=== PATIENT | female | born 1975 | race Caucasian/White ===

== ENCOUNTER 2019-11-19 17:06 | Emergency (ER) | payer OTHER ==
[2019-11-19 17:24] VITALS: BP 134/113; PULSE 113
[2019-11-19] MEDS ORDERED: Ondansetron 4 MG/2 ML SDV IVPUSH ONE ×2 (17:56→19:24)
[2019-11-19] MEDS ORDERED: Dextrose 5%-0.9% NaCl 1,000 ML IV SCH (18:00)
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
[2019-11-19] MEDS ORDERED: Iopamidol 612 MG/ML 100 ML Bottle IVPUSH ONE (19:21)
[2019-11-19] MEDS ORDERED: Sodium Chloride 0.9% 10 ML Syringe FLUSH ONE (19:21)
--- NOTE | 2019-11-19 19:38 | CT ---
CT abdomen and pelvis Technique: Multiple axial sections were obtained from above the dome of the diaphragm inferiorly through the pubic symphysis. Intravenous contrast was utilized. No oral contrast has been given. Imaging was also obtained through the bladder. Reconstructed sagittal and coronal images were obtained. Comparison: No prior abdominal imaging is available. Findings: Visualized lung bases show nothing acute. Liver contains no focal parenchymal abnormality. Spleen appears within normal limits. Adrenal glands show no nodule. Pancreas shows no abnormality. Gallbladder contains no calcified gallstones. Spleen appears within normal limits. Kidneys show multiple cysts. No hydronephrosis is seen. No abnormal calcifications are seen within the kidneys. Aorta shows no aneurysm. No retroperitoneal adenopathy or mesenteric abnormalities are seen. Appendix is seen which is normal in size. No pelvic mass or adenopathy is identified. No free fluid or inflammatory change is appreciated. Small fat-containing umbilical hernia is noted. Bone window settings were reviewed which shows disc space narrowing and vacuum disc phenomena at L5-S1 with mild posterior spurring. No acute osseous finding is appreciated. Delayed images shows contrast within the bladder. Impression: 1. Findings believed to be incidental as noted above. 2. Nothing acute is identified. Diagnostic code #2 This report was dictated in MDT
== END 2019-11-19 20:35 | disposition home or self-care (01) ==
LOC: JD.ED 17:06
DX: K29.80 Duodenitis without bleeding (principal); I10 Essential (primary) hypertension; E78.00 Pure hypercholesterolemia, unspecified; Z79.899 Other long term (current) drug therapy
CPT/HCPCS: 36415; 74177; 80053; 81001; 81025; 83690; 83735; 84443; 85025; 86140; 93005; 96361; 96374; 96376; 99284; J2405; J7042; Q9967; 93010

== ENCOUNTER 2020-04-18 08:56 | Day surgery (SDC) | payer OTHER ==
[~2020-04-18 08:56] MED LIST: Lactated Ringers 1,000 ML IV SCH; Lidocaine 1%/Sod Bicarbonate in NS 8.4% 1 ML Syringe IDERM PRN; Sodium Chloride 0.9% 10 ML Syringe FLUSH PRN
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
[2020-04-18] MEDS ORDERED: Propofol 200 MG/20 ML SDV ONE (09:15)
[2020-04-18] MEDS ORDERED: Midazolam 1 MG/ML 2 ML SDV ONE (09:16)
[2020-04-18] MEDS ORDERED: Scopolamine 1.5 MG Transdermal Patch TRDERM PRN (09:20)
[2020-04-18] MEDS ORDERED: Lidocaine 1% 4 ML ONE (09:20)
--- NOTE | 2020-04-18 10:07 | PCM.PRNOTE ---
- Free Text/Narrative Note: Date: 04/18/2020 Procedure: diagnostic Esophagogastroduodenoscopy History: reflux type symptoms Endoscopist: Tomas Koch MD Findings: small sliding hiatal hernia with distal gross evidence of esophagitis. Small gastric polyp. Detailed Report: The patient was taken to the endoscopy suite and placed in left lateral decubitus position. Timeout was performed, and monitored anesthesia care was initiated. A bite-block was placed. The endoscope was inserted into the mouth and advanced to the second portion of the duodenum. The duodenal mucosa appeared normal. A biopsy from the second portion was taken with cold forceps. Another biopsy specimen was obtained from the duodenal bulb. The scope was then withdrawn into the stomach. The pylorus appeared normal, and a sample of gastric antral mucosa was obtained with forceps. There was a small polyp in the mid body of the stomach, this was removed with forceps and sent for pathologic analysis. Grossly, this lesion appeared consistent with fundic gland polyp, and another smaller polyp was noted within the stomach. This was not biopsied. The incisura appeared normal, there was no evidence of ulceration. The scope was retroflexed, and a small sliding hiatal hernia was appreciated. Scope was withdrawn into the distal esophagus, and the hernia appeared to measure a few centimeters. The Z-line appeared normal, but the esophageal mucosa at the distal aspect appeared to have some inflammatory change. A biopsy was obtained just proximal to the GE junction, as well as a bit further proximal. Air was suctioned from the stomach and the esophagus. The remainder of the esophagus appeared normal. The scope was withdrawn, the patient tolerated the procedure well.
--- NOTE | 2020-04-18 10:09 | PCM48HPAN ---
Post Anesthesia Note - EVALUATION WITHIN 48HRS OF ANESTHETIC Vital Signs in Normal Range: Yes Patient Participated in Evaluation: Yes Respiratory Function Stable: Yes Airway Patent: Yes Cardiovascular Function Stable: Yes Hydration Status Stable: Yes Pain Control Satisfactory: Yes Nausea and Vomiting Control Satisfactory: Yes Mental Status Recovered: Yes Vital Signs: Last Vital Signs Temp 37.4 C 04/18/20 09:05 Pulse 88 04/18/20 09:05 Resp 12 04/18/20 09:05 BP 101/75 04/18/20 09:05 Pulse Ox 96 04/18/20 09:05 - COMMENTS/OBSERVATIONS Free Text/Narrative:: no anesthesia complications noted
[2020-04-18 10:41] VITALS: BP 110/88; PULSE 75
== END 2020-04-18 10:52 | disposition home or self-care (01) ==
LOC: JD.SDS 08:56
PROVIDERS: ATTEND Surgery
DX: K31.7 Polyp of stomach and duodenum (principal); K21.9 Gastro-esophageal reflux disease without esophagitis; K44.9 Diaphragmatic hernia without obstruction or gangrene; I10 Essential (primary) hypertension; E78.00 Pure hypercholesterolemia, unspecified; Z79.82 Long term (current) use of aspirin; Z79.899 Other long term (current) drug therapy; Z98.890 Other specified postprocedural states; Z80.0 Family history of malignant neoplasm of digestive organs; Z87.891 Personal history of nicotine dependence; Z86.73 Personal history of transient ischemic attack (TIA), and cerebral infarction without residual deficits
CPT/HCPCS: 43239; J2250; J2704; J7120; 00731

== ENCOUNTER 2020-09-17 08:41 | Day surgery (SDC) | payer OTHER ==
[2020-09-17] MEDS ORDERED: fentaNYL 100 MCG/2 ML SDV ONE (09:05)
[2020-09-17] MEDS ORDERED: Ondansetron 4 MG/2 ML SDV ONE (09:05)
[2020-09-17] MEDS ORDERED: Propofol 200 MG/20 ML SDV ONE ×2 (09:05→10:19)
[2020-09-17] MEDS ORDERED: Midazolam 1 MG/ML 2 ML SDV ONE (09:05)
[2020-09-17] MEDS ORDERED: Ketorolac 30 MG/ML SDV ONE (09:06)
[2020-09-17] MEDS ORDERED: Lidocaine 1% 4 ML ONE (09:06)
[2020-09-17] MEDS ORDERED: ceFAZolin 1 GM Vial ONE (09:09)
[2020-09-17] MEDS ORDERED: Lidocaine 1% with EPINEPHrine 1:100,000 10 ML MDV ONE (09:13)
[2020-09-17] MEDS ORDERED: Sodium Chloride 0.9% 50 ML SDV ONE (09:13)
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
[2020-09-17] MEDS ORDERED: Ondansetron 4 MG/2 ML SDV IVPUSH PRN (10:39)
[2020-09-17] MEDS ORDERED: LORazepam 2 MG/ML SDV IVPUSH ONE (10:43)
[2020-09-17] MEDS ORDERED: Ketorolac 30 MG/ML SDV IVPUSH SCH (10:45)
--- NOTE | 2020-09-17 10:46 | PCM.OPNOTE ---
- General Post-Op/Procedure Note Date of Surgery/Procedure: 09/17/20 Operative Procedure(s): Cervical intraepithelial neoplasia 3 (severe dysplasia) Findings: The cervix appeared grossly normal to make a diet and after application of Lugol's solution. Pre Op Diagnosis: 1. Cervical intraepithelial neoplasia 3 Post-Op Diagnosis: Same Anesthesia Technique: MAC Other Anesthesia Type: Lidocaine quarter percent with [id number] cc totallocal Primary Surgeon: Curtis Garcia Anesthesia Provider: Jesus Babcock Pathology: 1. LEEP biopsy of the ectocervix 2. LEEP biopsy above the cone site 3. Endocervical curettings above the cone site EBL in mLs: 5 Complications: None Condition: Good Free Text/Narrative:: Surgery duration: 10 minutes Procedure: Kyleigh underwent adequate consenting for LEEP procedure to be done for JOLIE-3 diagnosis. The patient is taken to the operating room and placed in supine position on the operating table. She was administered Ancef 2 g IV preop for infection prophylaxis. MAC was administered. After anesthesia patient was placed in a dorsal lithotomy position and prepped externally for this procedure. External genital prep was per routine. Internal prep was done with Lugol so lution. A weighted speculum was placed in the vagina. The cervix was visualized with findings as described above. The Lugol solution was applied and the ectocervix appeared entirely normal. The cervix was infiltrated with lidocaine quarter percent with epinephrine-20 mL total. Using a large LEEP loop a LEEP biopsy of cervix was performed. A small endocervical LEEP biopsy was also done above the first LEEP site. Endocervical curettings were then undertaken for full evaluation. The base of the lesion was cauterized. Minimal bleeding only was encountered. Patient tolerated the procedure well. Hemostasis was confirmed at the end of procedure. Sponge instrument needle counts are correct at the end of the procedure. She was returned to supine position and awakened from general anesthesia. She tolerated the procedure well left the operating room in good condition.
--- NOTE | 2020-09-17 11:52 | PCM48HPAN ---
Post Anesthesia Note - EVALUATION WITHIN 48HRS OF ANESTHETIC Vital Signs in Normal Range: Yes Patient Participated in Evaluation: Yes Respiratory Function Stable: Yes Airway Patent: Yes Cardiovascular Function Stable: Yes Hydration Status Stable: Yes Pain Control Satisfactory: Yes Nausea and Vomiting Control Satisfactory: Yes Mental Status Recovered: Yes Vital Signs: Last Vital Signs Temp 36.7 C 09/17/20 10:41 Pulse 106 H 09/17/20 10:41 Resp 16 09/17/20 10:41 BP 131/82 09/17/20 10:41 Pulse Ox 92 L 09/17/20 10:41 - COMMENTS/OBSERVATIONS Free Text/Narrative:: Lung clear, slight red tinged cough, 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
[2020-09-17 12:42] VITALS: BP 101/75; PULSE 76
[2020-09-17] MEDS ORDERED: Ibuprofen 600 MG Tab PO PRN (17:00)
== END 2020-09-17 12:37 | disposition home or self-care (01) ==
LOC: JD.SDS 08:41
PROVIDERS: ATTEND Obstetrics & Gynecology
DX: N87.9 Dysplasia of cervix uteri, unspecified (principal); N92.0 Excessive and frequent menstruation with regular cycle; N93.9 Abnormal uterine and vaginal bleeding, unspecified; I10 Essential (primary) hypertension; E78.00 Pure hypercholesterolemia, unspecified; Z86.73 Personal history of transient ischemic attack (TIA), and cerebral infarction without residual deficits; Z79.899 Other long term (current) drug therapy; Z87.891 Personal history of nicotine dependence
CPT/HCPCS: 36415; 57522; 85027; J0690; J1885; J2060; J2250; J2405; J2704; J3010; J7120; 00940

== ENCOUNTER 2020-11-01 07:32 | Day surgery (SDC) | payer OTHER ==
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
[~2020-11-01 07:32] MED LIST changes: +Dexamethasone 4 MG/ML 5 ML MDV ONE; +HYDROmorphone 0.5 MG/0.5 ML Syringe ONE; +Ketorolac 30 MG/ML SDV ONE; +Lactated Ringers 1,000 ML ONE; +Lidocaine 1% 4 ML ONE; +Midazolam 1 MG/ML 2 ML SDV ONE; +Ondansetron 4 MG/2 ML SDV ONE; +Propofol 200 MG/20 ML SDV ONE; +Rocuronium 50 MG/5 ML Vial ONE; +Scopolamine 1.5 MG Transdermal Patch TRDERM PRN; +ceFAZolin 1 GM Vial ONE; +fentaNYL 250 MCG/5 ML SDV ONE
[2020-11-01] MEDS ORDERED: Lidocaine 1% with EPINEPHrine 1:100,000 10 ML MDV ONE (07:39)
[2020-11-01] MEDS ORDERED: Sodium Chloride 0.9% 50 ML SDV ONE (07:39)
[2020-11-01] MEDS ORDERED: Bupivacaine 0.5% 30 ML SDV ONE (07:39)
[2020-11-01] MEDS ORDERED: HYDROmorphone 0.5 MG/0.5 ML Syringe IVPUSH PRN (08:45)
[2020-11-01] MEDS ORDERED: diphenhydrAMINE 50 MG/ML SDV IVPUSH PRN (08:45)
[2020-11-01] MEDS ORDERED: ePHEDrine 50 MG/ML SDV IVPUSH PRN (08:45)
[2020-11-01] MEDS ORDERED: fentaNYL 100 MCG/2 ML SDV IVPUSH PRN (08:45)
[2020-11-01] MEDS ORDERED: Ondansetron 4 MG/2 ML SDV IVPUSH PRN ×2 (08:45→09:37)
[2020-11-01] MEDS ORDERED: diphenhydrAMINE 50 MG/ML SDV ONE (08:53)
[2020-11-01] MEDS ORDERED: Acetaminophen/oxyCODONE 325-5 MG Tab PO PRN ×2 (09:37→12:49)
[2020-11-01] MEDS ORDERED: Ibuprofen 600 MG Tab PO PRN ×2 (09:37→19:00)
--- NOTE | 2020-11-01 09:43 | PCM.OPNOTE ---
- General Post-Op/Procedure Note Date of Surgery/Procedure: 11/01/20 Operative Procedure(s): Total vaginal hysterectomy with bilateral salpingectomy and left oophorectomy Findings: 1. Cervical mass consistent with fibroid, 2. Hemorrhagic left ovarian cyst 3. Normal uterus, right ovary and fallopian tubes otherwise. Pre Op Diagnosis: 1. History of JOLIE-3. 2. Cervical mass. 3. Left ovarian cyst Post-Op Diagnosis: Same Anesthesia Technique: General ET Tube Other Anesthesia Type: Lidocaine quarter percent with [id number] mLlocal Primary Surgeon: Curtis Garcia Secondary Surgeon: Bobo Johnson Anesthesia Provider: Ally Hughes Business Transformation Manager: Florentin Kaplan Reason Business Transformation Manager Was Necessary: Retraction, assistance, patient safety, quality of care. Pathology: Uterus with cervix, bilateral fallopian tubes, left ovary. Fluid Replacement, Intraop: 1,600 EBL in mLs: 300 Complications: None Condition: Good Free Text/Narrative:: Surgery duration: 40 minutes Procedure: The patient was placed in supine position on the operating table. General endotracheal anesthesia was accomplished. After positioning, and adequate prep and drape, the procedure was then performed. Sterile speculum was placed in the vagina and cervix was visualized. Cervix was injected with lidocaine quarter percent with epinephrine-20 mL used. A full circumference incision was made in the cervical epithelium. The bladder was pushed well back off cervix. Posterior cul-de-sac was then entered sharply without problems. Left uterosacral was crossclamped with a Enseal vessel closure system. The left uterosacral and then the right uterosacral ligament pedicles were developed using the Enseal system. Cardinal ligament and broad ligament were taken down partially with the Enseal system. The anterior cul-de-sac was then entered without problems and the uterine vasculature, remainder of the cardinal ligament and broad ligament then developed using Enseal vessel closure system. The uterus was inverted at this time and upper broad ligament fallopian tube pedicles were crossclamped with Ashley clamps. Specimen was totally removed. Right pedicle was secured with the Enseal vessel closure system. The left pedicle was then secured with a Ashley stitch of #1 Vicryl. Right ovary looked normal. The left ovary had a small 2 to 3 cm cyst present. Hemorrhagic in nature. Per patient desire removal of the ovary was undertaken. Both fallopian tubes were taken also. The patient was found to be hemostatically intact at this time. Vaginal cuff was sutured for hemostatic reasons with a running locked suture of 0 Monocryl from the 2 o'clock position to the 10 o'clock position posteriorly. Vaginal cuff was then closed from right to left side with a running locked suture of 0 Monocryl. Patient was returned to supine position and awakened from general endotracheal anesthesia. She tolerated the procedure and left the operating room in satisfactory condition.
--- NOTE | 2020-11-01 09:48 | PCM.POSTAN ---
POST ANESTHESIA ASSESSMENT - MENTAL STATUS Mental Status: Alert - VITAL SIGNS Vital Signs: Last Vital Signs Temp 98.6 11/01/20 09:38 Pulse 75 11/01/20 09:38 Resp 16 11/01/20 09:38 BP 120/76 11/01/20 09:38 Pulse Ox 99% 11/01/20 09:38 - RESPIRATORY Respiratory Status: Respiratory Rate WNL, Airway Patent, O2 Saturation Stable, Supplemental Oxygen - CARDIOVASCULAR CV Status: Pulse Rate WNL, Blood Pressure Stable - GASTROINTESTINAL GI Status: No Symptoms - POST OP HYDRATION Hydration Status: Adequate & Stable
--- NOTE | 2020-11-01 10:55 | PCM48HPAN ---
Post Anesthesia Note - EVALUATION WITHIN 48HRS OF ANESTHETIC Vital Signs in Normal Range: Yes Patient Participated in Evaluation: Yes Respiratory Function Stable: Yes Airway Patent: Yes Cardiovascular Function Stable: Yes Hydration Status Stable: Yes Pain Control Satisfactory: Yes Nausea and Vomiting Control Satisfactory: Yes Mental Status Recovered: Yes Vital Signs: Last Vital Signs Temp 37.2 C 11/01/20 10:35 Pulse 58 L 11/01/20 10:35 Resp 13 11/01/20 10:35 BP 108/73 11/01/20 10:35 Pulse Ox 99 11/01/20 10:35
[2020-11-01 12:38] VITALS: BP 120/86; PULSE 85
[2020-11-01] MEDS ORDERED: Ketorolac 30 MG/ML SDV IVPUSH SCH (13:00)
== END 2020-11-01 12:20 | disposition home or self-care (01) ==
LOC: JD.SDS 07:32
PROVIDERS: ATTEND Obstetrics & Gynecology
DX: D25.0 Submucous leiomyoma of uterus (principal); N80.0 Endometriosis of uterus; N83.12 Corpus luteum cyst of left ovary; N72 Inflammatory disease of cervix uteri; K21.9 Gastro-esophageal reflux disease without esophagitis; I10 Essential (primary) hypertension; E78.00 Pure hypercholesterolemia, unspecified; Z86.73 Personal history of transient ischemic attack (TIA), and cerebral infarction without residual deficits; Z79.899 Other long term (current) drug therapy; Z98.890 Other specified postprocedural states; Z87.891 Personal history of nicotine dependence
CPT/HCPCS: 36415; 58262; 86850; 86900; 86901; A9270; J0690; J1100; J1170; J1200; J1885; J2250; J2405; J2704; J2710; J3010; J7120; 00944; J3490